=== PATIENT | male | born 1945 | race Two or more races ===

== ENCOUNTER → 2017-02-22 | Outpatient (CLI) | payer OTHER, MEDICAID | LOC: BMCIMAGING 14:26 | PROVIDERS: ATTEND Internal Medicine | DX: M19.042 Primary osteoarthritis, left hand (principal) ==

== ENCOUNTER → 2018-03-19 | Outpatient (CLI) | payer OTHER, MEDICARE ==
[~2018-03-19] MED LIST: IOPAMIDOL (ISOVUE-300) 100 ML BTL ONE
== END ==
LOC: FIMAGING 12:57
PROVIDERS: ATTEND Internal Medicine
DX: R59.9 Enlarged lymph nodes, unspecified (principal); K86.9 Disease of pancreas, unspecified
CPT/HCPCS: 74160; Q9967

== ENCOUNTER → 2018-03-20 | Outpatient (CLI) | payer OTHER, MEDICARE | LOC: BMCIMAGING 17:02 | PROVIDERS: ATTEND Internal Medicine | DX: M17.12 Unilateral primary osteoarthritis, left knee (principal) ==

== ENCOUNTER → 2018-04-12 | Outpatient (CLI) | payer OTHER, MEDICARE | LOC: BHFA 08:30 | PROVIDERS: ATTEND Internal Medicine Cardiovascular Disease | DX: R07.9 Chest pain, unspecified (principal); R01.1 Cardiac murmur, unspecified | CPT/HCPCS: 78452; 93017; 93306; A9500; J2785 ==

== ENCOUNTER 2018-04-17 06:34 | Day surgery (SDC) | payer OTHER, MEDICARE ==
[2018-04-17] MEDS ORDERED: NS 1,000 ML IV ONE (06:39)
[2018-04-17] MEDS ORDERED: FAMOTIDINE 20 MG TAB PO ONE (06:39)
[2018-04-17] MEDS ORDERED: DIAZEPAM 5 MG TAB PO ONE (06:39)
[2018-04-17] MEDS ORDERED: diphenhydrAMINE 25 MG CAP PO ONE (06:39)
[2018-04-17] MEDS ORDERED: ASPIRIN EC 325 MG TAB PO ONE (06:39)
[2018-04-17 07:11] LABS: PLATELET COUNT 176 10^3/uL (150-400)
[2018-04-17] MEDS ORDERED: LIDOCAINE 1% 300 MG/30 ML SDV ONE (07:12)
[2018-04-17] MEDS ORDERED: IOPAMIDOL (ISOVUE-370) 150 ML BTL IV ONE (07:13)
[2018-04-17] MEDS ORDERED: fentaNYL 100 MCG/2 ML INJ ONE (07:13)
[2018-04-17] MEDS ORDERED: MIDAZOLAM 2 MG/2 ML VIAL ONE (07:13)
[2018-04-17 07:15] LABS: INR 1.08 (0.83-1.16); PROTIME(PATIENT) 14.2 SEC (12.0-15.0)
--- NOTE | 2018-04-17 07:25 | PDHPUP ---
History & Physical Update H&P update statement: This history and physical update is based on an assessment of the patient which was completed after admission or registration (within 24 hours), but prior to the surgery/procedure. H&P update: H&P reviewed & patient examined, no change in patient's condition since H&P completed
--- NOTE | 2018-04-17 07:25 | PDPROPOC ---
Sedation Plan of Care Sedation Plan of Care: mental status noted, patient educated of risks, benefits , alternatives, patient can tolerate sedation ASA Classification: ASA 2 Planned drugs: fentanyl, midazolam Mallampati Score: Class 2 Mallampati Reference Image: Patient passed 3-3-2 rule?: Yes
[2018-04-17] MEDS ORDERED: BIVALIRUDIN 250 MG/5 ML VIAL IV ONE (07:48)
[2018-04-17] MEDS ORDERED: ADENOSINE 90 MG/30 ML VIAL IV ONE (07:48)
[2018-04-17] MEDS ORDERED: NITROGLYCERIN 0.4 MG BTL SL PRN (08:37)
[2018-04-17] MEDS ORDERED: ONDANSETRON 4 MG/2 ML VIAL IVP PRN (08:37)
[2018-04-17] MEDS ORDERED: ATROPINE SULFATE 1 MG/10 ML SYR IVP PRN (08:37)
[2018-04-17] MEDS ORDERED: HYDROCODONE/APAP 5/325 TAB PO PRN (08:37)
[2018-04-17] MEDS ORDERED: OXYCODONE/APAP 5/325 TAB PO PRN (08:37)
--- NOTE | 2018-04-17 09:21 | CPIP ---
DATE OF PROCEDURE: 04/17/2018 INDICATION FOR PROCEDURE: Chest pain, positive stress test. PROCEDURES: 1. Nonselective right groin sheathogram. 2. Bilateral selective angiography. 3. Left heart catheterization. 4. Left ventriculogram. 5. Fractional flow reserve of left anterior descending. HISTORY: Briefly this is a 73-year-old male with history of worsening anginal like symptoms as an ou tpatient. The patient underwent stress testing, which was positive for ischemia. Given the patient' s anginal symptoms, as well as stress testing findings, it was decided to proceed with left heart cat heterization. DESCRIPTION OF PROCEDURE: After informed consent was obtained, the patient was brought to [facility] where the right groin was prepped and draped in a sterile fashion. Using lidocaine, a short 6-Turkish sheat h was introduced in the right femoral artery verified angiographically. Through the 6-Turkish sheath, a JL4 catheter was advanced to the left coronary artery. Images of the left coronary artery reveale d normal left main. There was a ramus intermedius coming off, which appeared to be healthy and free of disease. The left circumflex appeared to be a left dominant circulation with a healthy LPDA and L PLS with a tiny marginal coming off proximally. The LAD itself was a long vessel, which had mild 30% tubular disease after the takeoff of a medium-sized diagonal artery. The ostium of the LAD had appr oximately 20% disease. After the images were obtained, the JL4 catheter was removed. A JR4 catheter was advanced to the right coronary artery. Images reveal a nondominant right coronary artery. Pigtail catheter was advanced to left ventricle. EDP is 15 mmHg. Left ventriculogram obta ined in the DIANE position showed an EF of 55%, with no wall motion abnormalities. No pullback gradien t between the LV and aorta. The pigtail catheter was removed over the 0.035 wire. INTERVENTIONAL REPORT: At this time, we decided to proceed with FFR of the LAD given the patient's h igh-risk symptoms and stress test findings, as well as well as mild plaque in the proximal LAD. At t his time, utilizing the EBU 3.5 guide, the left coronary artery was selectively engaged. An FFR wire was placed down the LAD. Initial Pd/Pa measurement was 1.0. We proceeded with adenosine infusion a t 140 mcg/kg per minute as per FFR protocol. After 2 minutes of infusion, measurement reduced to 0.8 4 and then increased back to 0.9. This was observed for an additional minute and there was no variat ion in the measurement. At this time, contrast was injected and verified the position of the wire. At this time, there was no dissection or perforation noted. The wire was pulled back. The guide cat heter was then removed. The right groin was closed with 6-Turkish Angio-Seal. The patient tolerated the procedure well with n o complications. IMPRESSION: 1. Noncritical left anterior descending disease verified by fractional flow reserve. 2. Left dominant circulation with healthy LPDA and LPLS. 3. Nondominant right coronary artery with no significant disease. 4. Normal ejection fraction. PLAN: The patient could very well have underlying microvascular disease causing his underlying angin al symptoms. We will proceed with aggressive medical therapy, i.e. Imdur and Ranexa to see if these controls symptoms. No requirement for PCI or bypass surgery at this point. /[id number]/MODL
--- NOTE | 2018-04-17 16:41 | CPEKG ---
Test Reason : OPEN Blood Pressure : / mmHG Vent. Rate : 056 BPM Atrial Rate : 056 BPM P-R Int : 188 ms QRS Dur : 099 ms QT Int : 410 ms P-R-T Axes : 041 032 038 degrees QTc Int : 396 ms Sinus rhythm Confirmed by Sonny Bronson ([id number]) on 04/17/2018 4:40:35 PM Referred By: Confirmed By:Sonny Bronson
== END 2018-04-17 11:45 | disposition home or self-care (01) ==
LOC: FCATH 06:34
PROVIDERS: ATTEND Internal Medicine Cardiovascular Disease
DX: R07.9 Chest pain, unspecified (principal); I25.10 Atherosclerotic heart disease of native coronary artery without angina pectoris
CPT/HCPCS: 93005; 93458; 93571; C1769; C1887; C1760; J0153; J0583; J1644; J2250; J3010; Q9967